=== PATIENT | male | born 1950 | race Caucasian/White ===

== ENCOUNTER 2023-11-05 06:09 | Day surgery (SDC) | payer BC, SELFPAY ==
[2023-10-26 08:57] VITALS: BMI 22.9
[2023-10-26 10:29] LABS: % Basophils 0.3 % (0-2); % Eosinophils 0.9 % (0-6); % Immature Granulocytes 0.4 % (0-0.5); % Lymphocytes 13.3 % (20.5-51.1); % Monocytes 7.9 % (1.7-9.3); % Neutrophils 77.2 % (42.2-75.2); Absolute Eosinophils 0.1 10^3/uL (0-0.7); Absolute Monocytes 0.6 10^3/uL (0.1-0.6); Absolute Neutrophils 5.8 10^3/uL (1.4-6.5); Hemoglobin 11.8 g/dL (13.0-18.0); Mean Corp Hgb Conc. 35.8 g/dL (33.0-37.0); Mean Corpuscular Hgb 32.6 pg (27.0-31.0); Mean Corpuscular Volume 91.2 fL (80.0-94.0); Nucleated Red Blood Cells % 0 % (-); Platelet Count 206 10^3/uL (130-400); Red Blood Cell Count 3.62 10^6/uL (4.70-6.10); Red Cell Dist. Width 12.5 % (11.5-14.5); White Blood Cell Count 7.5 10^3/uL (4.8-10.8)
[2023-10-26 11:23] LABS: ALT (SGPT) 14 U/L (0-50); AST (SGOT) 21 U/L (17-59); Albumin 4.3 g/dl (3.5-5.0); Alkaline Phosphatase 87 U/L (38-126); Blood Urea Nitrogen 17 mg/dl (9-20); Calcium 9.5 mg/dl (8.4-10.2); Carbon Dioxide 26 mmol/L (22-30); Chloride 98 mmol/L (98-107); Estimated Creatinine Clearance 58 ml/min; Glucose 95 mg/dl (70-99); Potassium 4.7 mmol/L (3.5-5.1); Sodium 133 mmol/L (135-145); Total Bilirubin 0.8 mg/dl (0.2-1.3); eGFR > 60.00
[2023-11-05] VITALS (14 sets, daily range): BP systolic 86–122; BP diastolic 56–77; BMI 22.2
[2023-11-05] MEDS: NSS 187 ML IV (07:11)
--- NOTE | 2023-11-05 10:24 | ITS.CL.CATH ---
Frame Stylist - Catheterization
Cardiac Catheterization
Procedure Report:
CARDIAC CATHETERIZATION REPORT
Date of Procedure: 11/05/2023
Referring: Christophe Varma MD
Indication: Known CAD with exertional dyspnea and inferolateral ischemia on stress test
�
HEMODYNAMIC DATA
AO: 106/68
LV: 106/15
�
LEFT VENTRICULOGRAPHY: Normal left ventricular wall motion with visually estimated EF 55-60%
�
CORONARY ANGIOGRAPHY
Dominance: Codominant
Left Main: Normal
LAD: Heavily calcified proximal and mid LAD with 50% mid LAD stenosis similar in appearance to the 2021 study. b There is a 90% apical LAD lesion unchanged in appearance compared with the prior study from 2021. The first diagonal branch has 30%
proximal stenosis also similar appearance to the 2021 study.
Circumflex: The dominant circumflex has 90% ostial stenosis. This has significantly progressed compared with the 2021 study at which time there was 50% ostial stenosis and IFR was 1.0. There is 40-50% proximal circumflex stenosis unchanged from
its appearance on the prior study from 2021. The circumflex terminates with several medium sized left posterolateral branches and a tiny left PDA.. Of note, the LAD and the acute marginal branch of the RCA provide flow to the distal inferior wall
RCA: Codominant vessel without significant disease. The acute marginal branch supplies the distal inferoseptal LV segment
�
Closure Device: 6 Faroese Angio-Seal RFA. Of note, there was a palpable right radial artery pulse; however, we were unable to pass a soft guidewire more than 10 mm and converted to a RFA approach
�
Radiation (mGy): 116
DAP (cm2.Gy): 14.2
Fluoroscopy time: 2.6 minutes
�
CONCLUSIONS
1:�Normal left ventricular wall motion with EF 55-60%
2:�Multivessel CAD as described. Compared with the 2021 study, there has been significant progression of the ostial circumflex lesion which is now severe
3. Including continued medical therapy, ostial circumflex (and possible apical LAD) PCI, and CABG (mid LAD, OM) will be reviewed with Raúl. I will also discuss the angiographic findings and options with Dr. Varma
�
�
Copy to: Christophe Varma MD, Royce Peña MD
�
Aki Desir MD, [facility], [facility]
== END 2023-11-05 11:40 | disposition home or self-care (01) ==
LOC: CATH 06:09
PROVIDERS: ATTENDING PHYSICIAN Internal Medicine Cardiovascular Disease; FAMILY PHYSICIAN Family Medicine; OTHER PHYSICIAN Internal Medicine Cardiovascular Disease
DX: I25.10 Atherosclerotic heart disease of native coronary artery without angina pectoris (principal); R06.09 Other forms of dyspnea; I10 Essential (primary) hypertension; E78.5 Hyperlipidemia, unspecified; K21.9 Gastro-esophageal reflux disease without esophagitis; Z79.82 Long term (current) use of aspirin
CPT/HCPCS: 36415; 80053; 85025; 93005; 93458; C1760; C1894; Q9967

== ENCOUNTER 2023-11-07 08:16 | Day surgery (SDC) | payer BC, SELFPAY ==
[2023-11-07] VITALS (14 sets, daily range): BP systolic 89–132; BP diastolic 62–78; BMI 21.6
[2023-11-07] MEDS: NSS 182 ML IV (09:14)
--- NOTE | 2023-11-07 11:48 | ITS.CL.ANGIO ---
Control Systems Specialist - Angioplasty
Angioplasty
Procedure Report:
CORONARY ANGIOPLASTY REPORT
Date of Procedure: 11/07/2023
Referring: Christophe Varma MD
�
PROCEDURE SUMMARY:
Successful angioplasty and stenting of tandem 90% ostial and 50% proximal circumflex stenoses with placement of a 4.0 x 26 Michael CARMEN from the proximal left main coronary artery into the circumflex
�
DESCRIPTION OF PROCEDURE: Following a discussion about options including medical therapy, PCI, and CABG the patient elected to return for PCI. Our plan was to treat the ostial and proximal circumflex lesions with placement of the stent back into
the left main coronary artery. Access was obtained via the left femoral artery. An 8 [place]ian sheath was placed as we needed to be ready for treatment of the ostial LAD should there be significant plaque shift. Heparin was used for anticoagulation.
Plavix 600 mg was administered the procedure conclusion. An 8 [place]amanian XB 3.5 guide catheter was used and provided excellent backup support and was easily withdrawn from the left main coronary for balloon and stent placement purposes. A BMW wire
was successfully passed into the distal circumflex. A second BMW wire was then placed in the LAD. Predilatation of the ostial and proximal circumflex lesions was accomplished with a 2.5 x 20 NC Euphora balloon to 14 toni with full balloon
expansion. IVUS was performed to size the left main coronary artery. Of note, the catheter could not be passed into the circumflex. It was clear that the left main would accommodate a 4.0 mm stent. We then attempted unsuccessfully to pass a 4.0
x 26 [place] CARMEN into the circumflex-the stent would not pass through the ostium of the circumflex. The undeployed stent was carefully removed and a 6 Guamanian guide liner was placed. We then used a 3.0 x 15 NC Euphora to more aggressively
dilate the proximal and ostial circumflex stenoses to 14 toni. The guide liner was advanced over the deflated balloon into the circumflex. Following some technical issues including the need to remove the LAD wire to allow passage of the stent
through the guide liner, we placed the 4.0 x 26 [place] CARMEN to the target location covering both circumflex lesions and extending back into the midportion of the short left main coronary artery. The stent was deployed at 16 toni then postdilated with a
4.0 NC Euphora to maximum 18 toni. The final angiographic result was outstanding. Patient tolerated the procedure well with no need for any hemodynamic support. He remained angina free with no ischemic changes on the mental retardation nurse.
�
ANTI-COAGULATION THERAPY
1:�Heparin 6000 units
�
Closure Device Used: 8 Guamanian Angio-Seal LFA
�
Radiation (mGy): 338
DAP (cm2.Gy): 24.6
Fluoroscopy time: 17.8 minutes
�
CONCLUSIONS: Successful stenting of severe ostial and moderate proximal circumflex stenoses with 4.0 x 26 Michael CARMEN with outstanding angiographic result. Recommend prolonged dual antiplatelet therapy for minimum 12 months and would consider longer
duration given the stent extending into the midportion of the left main coronary artery. The patient has been advised that under no circumstances should his antiplatelet therapy be adjusted without the permission of his manager quality systems.
�
Copy to: Christophe Varma MD, Royce Peña MD
�
Aki Desir MD, [facility], [facility]
�
[2023-11-07 13:13] LABS: ACT-LR - POC > 397 Seconds (116-155)
[2023-11-07 13:13] LABS: ACT-LR - POC > 397 Seconds (116-155)
[2023-11-07 13:13] LABS: ACT-LR - POC > 397 Seconds (116-155)
--- NOTE | 2023-11-07 16:49 | W.PN.UPDATE ---
Update Note
Progress Note Update
73 yo WM s/p PCI LCx (same day). He feels good, no cp, sob, narinder diet, voiding, R fem site c/d/i no HT, soft, EKG SR. He will be on DAPT ASA/Plavix. Cardiac rehab c/s. Activity restrictions reviewed. He will f/u in Dr. Varma office in 2 weeks. He
is for d/c home after 5pm.
CONCLUSIONS: Successful stenting of severe ostial and moderate proximal circumflex stenoses with 4.0 x 26 [place] CARMEN with outstanding angiographic result. Recommend prolonged dual antiplatelet therapy for minimum 12 months and would consider longer
duration given the stent extending into the midportion of the left main coronary artery. The patient has been advised that under no circumstances should his antiplatelet therapy be adjusted without the permission of his seat installer.
�
Copy to: Christophe Varma MD, Royce Peña MD
�
== END 2023-11-07 17:10 | disposition home or self-care (01) ==
LOC: CATH 08:16
PROVIDERS: ATTENDING PHYSICIAN Internal Medicine Cardiovascular Disease; FAMILY PHYSICIAN Family Medicine; OTHER PHYSICIAN Internal Medicine Cardiovascular Disease
DX: I25.10 Atherosclerotic heart disease of native coronary artery without angina pectoris (principal); I10 Essential (primary) hypertension; E78.5 Hyperlipidemia, unspecified; K21.9 Gastro-esophageal reflux disease without esophagitis; M41.9 Scoliosis, unspecified; Z79.82 Long term (current) use of aspirin; Z79.02 Long term (current) use of antithrombotics/antiplatelets
CPT/HCPCS: 92978; C1769; C1725; C1894; C1887; C1753; 85347; 93005; C1760; C1874; C9600; Q9967